=== PATIENT | male | born 1995 | race Caucasian/White ===

== ENCOUNTER 2018-07-17 19:34 | Emergency (ER) | payer BC ==
[2018-07-17] MEDS ORDERED: Bacitracin Oint 1 GM U/D Packet TOP ONE (19:50)
[2018-07-17] MEDS ORDERED: Diphtheria,Pertussis(Acell),Tetanus Vaccine 0.5 ML Syringe IM ONE (19:54)
--- NOTE | 2018-07-17 19:55 | EDM.PDOC ---
ED HPI GENERAL MEDICAL PROBLEM - General Chief Complaint: Laceration Stated Complaint: PT FELL AND HURT NOSE Time Seen by Provider: 07/17/18 19:35 Source of Information: Reports: Patient History Limitations: Reports: No Limitations - History of Present Illness INITIAL COMMENTS - FREE TEXT/NARRATIVE: HISTORY AND PHYSICAL: History of present illness: Patient is a 22-year-old male who presents to the emergency room with concerns of a nasal injury. He states he was moving some equipment when a handle slipped and hit him in the upper nasal bridge. He does have an abrasion with some soft tissue swelling. Denies any loss of consciousness, visual changes, dizziness or near-syncope. Unsure of his last tetanus update. Review of systems: As per history of present illness and below otherwise all systems reviewed and negative. Past medical history: As per history of present illness and as reviewed below otherwise noncontributory. Surgical history: As per history of present illness and as reviewed below otherwise noncontributory. Social history: See social history for further information Family history: As per history of present illness and as reviewed below otherwise noncontributory. Physical exam: General: Well-developed and well-nourished 22-year-old male. Alert and oriented. Nontoxic appearing and in no acute distress. HEENT: Tenderness with palpation to the upper portion of the bridge of his nose , naris intact. No other facial bone tenderness with palpation. No scalp tenderness, normocephalic, pupils equal and reactive bilaterally, negative for conjunctival pallor or scleral icterus, mucous membranes moist, TMs normal bilaterally, throat clear, neck supple, nontender, trachea midline. No drooling or trismus noted. No meningeal signs. No hot potato voice noted. Lungs: Clear to auscultation, breath sounds equal bilaterally, chest nontender. Heart: S1S2, regular rate and rhythm without overt murmur Abdomen: Soft, nondistended, nontender. Negative for masses or hepatosplenomegaly. Negative for costovertebral tenderness. Pelvis: Stable nontender. Genitourinary: Deferred. Rectal: Deferred. Skin: Intact, warm, dry. No lesions or rashes noted. Extremities: Atraumatic, negative for cords or calf pain. Neurovascular unremarkable. C-spine: No pinpoint vertebral tenderness upon palpation. No crepitus, Neuro: Awake, alert, oriented. Cranial nerves II through XII unremarkable. Cerebellum unremarkable. Motor and sensory unremarkable throughout. Exam nonfocal. Notes: Minimally displaced nasal bone fracture.Wound care was completed. Bacitracin applied and tetanus was updated. Supportive care measures were reviewed and discussed. He voices understanding and is agreeable to plan of care. Denies any further questions or concerns at this time. Diagnostics: Nasal bone x-ray Therapeutics: Wound care, bacitracin, tdap Prescription: Tylenol #3 (#10) Impression: Nasal bone fracture Plan: 1. Ice the area as able. Please avoid any contact sports in which she can reinjure the area. 2. Tylenol and/or ibuprofen as needed for pain management. Tylenol #3 for moderate to severe pain. This medication may cause drowsiness so do not take it while driving or needing to be functioning outside of the house. 3. Please follow-up with your primary caregiver and/or plastic surgeon in the next 1-2 days. Return to the ED as needed and as discussed. Definitive disposition and diagnosis as appropriate pending reevaluation and review of above. Onset: Today Location: Reports: Face nasal bridge Pain Score (Numeric/FACES): 4 - Related Data Allergies Allergy/AdvReac Type Severity Reaction Status Date / Time No Known Allergies Allergy Verified 07/17/18 19:47 Home Meds: Home Meds Acetaminophen with Codeine [Tylenol with Codeine #3 Tablet] 1 each PO Q4HR PRN # 10 tablet 07/17/18 [Rx] Past Medical History HEENT History: Reports: None Cardiovascular History: Reports: None Respiratory History: Reports: None Gastrointestinal History: Reports: None Neurological History: Reports: None Endocrine/Metabolic History: Reports: None Dermatologic History: Reports: None - Infectious Disease History Infectious Disease History: Reports: None Social & Family History - Family History Family Medical History: Noncontributory ED ROS GENERAL - Review of Systems Review Of Systems: ROS reveals no pertinent complaints other than HPI. ED EXAM, SKIN/RASH Exam: See Below (See dictation) Course - Vital Signs Last Recorded V/S: Last Vital Signs Temp 97.8 F 07/17/18 19:47 Pulse 62 07/17/18 19:47 Resp 18 07/17/18 19:47 BP 138/72 07/17/18 19:47 Pulse Ox 98 01/24/19 19:47 - Orders/Labs/Meds Orders: Active Orders 24 hr Category Date Time Status Vaccines to be Administered [RC] PER UNIT ROUTINE Care 07/17/18 19:55 Active Meds: Medications Discontinued Medications Generic Name Dose Route Start Last Admin Trade Name Blaneq PRN Reason Stop Dose Admin Bacitracin 1 dose 07/17/18 19:50 07/17/18 20:01 Bacitracin Oint 1 Gm TOP 07/17/18 19:51 1 dose ONETIME ONE Administration Diphtheria/Tetanus/Acell Pertussis 0.5 ml 07/17/18 19:54 07/17/18 20:00 Adacel IM 07/17/18 19:55 0.5 ml .ONCE ONE Administration Departure - Departure Time of Disposition: 20:37 Disposition: Home, Self-Care 01 Clinical Impression: Nasal bone fracture Qualifiers: Encounter type: initial encounter Fracture type: closed Qualified Code(s): S02.2XXA - Fracture of nasal bones, initial encounter for closed fracture - Discharge Information Prescriptions: Acetaminophen with Codeine [Tylenol with Codeine #3 Tablet] 1 each PO Q4HR PRN # 10 tablet PRN Reason: Pain Instructions: Nasal Fracture, [id number] Referrals: PCP,None [Primary Care Provider] - Forms: ED Department Discharge Additional Instructions: The following information is given to patients seen in the emergency department who are being discharged to home. This information is to outline your options for follow-up care. We provide all patients seen in our emergency department with a follow-up referral. The need for follow-up, as well as the timing and circumstances, are variable depending upon the specifics of your emergency department visit. If you don't have a primary care physician on staff, we will provide you with a referral. We always advise you to contact your personal physician following an emergency department visit to inform them of the circumstance of the visit and for follow-up with them and/or the need for any referrals to a consulting specialist. The emergency department will also refer you to a specialist when appropriate. This referral assures that you have the opportunity for follow-up care with a specialist. All of these measure are taken in an effort to provide you with optimal care, which includes your follow-up. Under all circumstances we always encourage you to contact your private physician who remains a resource for coordinating your care. When calling for follow-up care, please make the office aware that this follow-up is from your recent emergency room visit. If for any reason you are refused follow-up, please contact the [facility] Emergency Department at and asked to speak to the emergency department charge nurse. [facility] [address] [place] [address] [facility] [address] [place] [id number] [facility] - Plastic Surgery Professional Building [address] [facility], [address] [place] [address] 1. Ice the area as able. Please avoid any contact sports in which she can reinjure the area. 2. Tylenol and/or ibuprofen as needed for pain management. Tylenol #3 for moderate to severe pain. This medication may cause drowsiness so do not take it while driving or needing to be functioning outside of the house. 3. Please follow-up with your primary caregiver and/or the Plastic surgeon in the next 1-2 days. Return to the ED as needed and as discussed. - My Orders Last 24 Hours: My Active Orders 07/17/18 19:55 Vaccines to be Administered [RC] PER UNIT ROUTINE - Assessment/Plan Last 24 Hours: My Active Orders 07/17/18 19:55 Vaccines to be Administered [RC] PER UNIT ROUTINE
--- NOTE | 2018-07-17 20:47 | CR ---
Indication: Hit in nose with pipe Technique: Three views nasal bones Comparison: None Findings/Impression: : Minimally displaced nasal bone fractures of unknown age. Visualized paranasal sinuses are normally aerated. Remainder of the osseous structures are intact. Dictated by Candida Rodriguez MD @ Jul 17 2018 8:44PM Signed by Dr. Candida Rodriguez @ Jul 17 2018 8:46PM
[2018-07-17 20:53] VITALS: BP 132/74
== END 2018-07-17 20:53 | disposition home or self-care (01) ==
LOC: MW.ED 19:34
DX: S02.2XXA Fracture of nasal bones, initial encounter for closed fracture (principal); Z23 Encounter for immunization; W22.8XXA Striking against or struck by other objects, initial encounter
CPT/HCPCS: 70160; 70160-26; 90471; 90715; 99283; 99283-25

== ENCOUNTER 2019-07-23 21:07 | Emergency (ER) | payer BC ==
[2019-07-23] MEDS ORDERED: Dexamethasone 10 MG/ML SDV IM ONE (22:09)
[2019-07-23] MEDS ORDERED: Ondansetron 4 MG Tab.DIS PO ONE (22:09)
--- NOTE | 2019-07-23 22:28 | EDM.PDOC ---
ED HPI GENERAL MEDICAL PROBLEM - General Chief Complaint: General Stated Complaint: POSSIBLE FLU Time Seen by Provider: 07/23/19 23:01 Source of Information: Reports: Patient History Limitations: Reports: No Limitations - History of Present Illness INITIAL COMMENTS - FREE TEXT/NARRATIVE: SHENA HPI: This is a 23-year-old male with fever sore throat vomiting and diarrhea over the past 48 hours. No one else is sick at home. No hematemesis or melena no recent foreign travel tainted food ingestion or antibiotic use. Emesis was over 12 hours ago. PMHX/PSHX: Negative Social HX: Denies drugs alcohol marijuana or tobacco ROS: Review of systems is otherwise negative except ENT the patient complains of sore throat GI: The patient complains of vomiting and diarrhea PE: VS afebrile vital signs stable General: No apparent distress Head: Atraumatic normocephalic no lumps bumps or bruises Eyes: EOMI PERRLA Ears: TMs intact no hemotympanum no signs of infection no mastoid tenderness Nose: No epistaxis nares patent no septal wall hematoma Throat: pharyngeal erythema or exudate no tonsillar enlargement Neck: Supple, no cervical lymphadenopathy Chest wall: No point tenderness Heart: Regular rate and rhythm without murmur gallop or rub Lungs: There to auscultation and percussion without rales rhonchi or wheeze Abdomen: Soft nontender nondistended without guarding rigidity or rebound Neck: No spinal point tenderness full range of motion in all 6 directions Back: No spinal paraspinal or CVA tenderness Extremities: full rom through out. no effusions Skin: Warm dry intact no rashes MDM/ED Course: Strep screen is negative but influenza is positive for influenza A. Patient's abdomen is benign on serial examination. He was administered a prescription for Tamiflu and Zofran. Stable for discharge Diagnosis: Influenza A Disposition: Home Treatments NET COORDINATOR: Reports: Aspirin throat Pain Score (Numeric/FACES): 10 - Related Data Allergies Allergy/AdvReac Type Severity Reaction Status Date / Time No Known Allergies Allergy Verified 07/23/19 21:50 Home Meds: Home Meds Ondansetron [Zofran ODT] 4 mg PO Q6H PRN #10 tab.dis 07/23/19 [Rx] Oseltamivir [Tamiflu] 75 mg PO BID 5 Days #10 cap 07/23/19 [Rx] Past Medical History HEENT History: Reports: None Cardiovascular History: Reports: None Respiratory History: Reports: None Gastrointestinal History: Reports: None Musculoskeletal History: Reports: None Neurological History: Reports: None Psychiatric History: Reports: None Endocrine/Metabolic History: Reports: None Hematologic History: Reports: None Immunologic History: Reports: None Oncologic (Cancer) History: Reports: None Dermatologic History: Reports: None - Infectious Disease History Infectious Disease History: Reports: None - Past Surgical History Head Surgeries/Procedures: Reports: None Social & Family History - Family History Family Medical History: Noncontributory - Tobacco Use Smoking Status *Q: Never Smoker - Caffeine Use Caffeine Use: Reports: Soda - Recreational Drug Use Recreational Drug Use: No ED ROS GENERAL - Review of Systems Review Of Systems: Comprehensive ROS is negative, except as noted in HPI. ED EXAM, GENERAL - Physical Exam Exam: See Below Reason Not Obtained: See my dictation Course - Vital Signs Last Recorded V/S: Last Vital Signs Temp 37.6 C 07/23/19 21:52 Pulse 74 07/23/19 21:52 Resp 16 07/23/19 21:52 BP 150/93 H 07/23/19 21:52 Pulse Ox 97 07/23/19 21:52 - Orders/Labs/Meds Orders: Active Orders 24 hr Category Date Time Status CULTURE STREP A CONFIRMATION [] Stat Lab 07/23/19 20:45 Results STREP SCRN A RAPID W CULT CONF [] Stat Lab 07/23/19 20:45 Results Meds: Medications Discontinued Medications Generic Name Dose Route Start Last Admin Trade Name Freq PRN Reason Stop Dose Admin Dexamethasone 6 mg 07/23/19 22:09 Dexamethasone IM 07/23/19 22:10 ONETIME ONE Ondansetron HCl 4 mg 07/23/19 22:09 Zofran Odt PO 07/23/19 22:10 ONETIME ONE Departure - Departure Time of Disposition: 22:52 Disposition: Home, Self-Care 01 Condition: Good Clinical Impression: Influenza A - Discharge Information *PRESCRIPTION DRUG MONITORING PROGRAM REVIEWED*: Not Applicable *COPY OF PRESCRIPTION DRUG MONITORING REPORT IN PATIENT YUMIKO: Not Applicable Prescriptions: Ondansetron [Zofran ODT] 4 mg PO Q6H PRN #10 tab.dis PRN Reason: Nausea/Vomiting Oseltamivir [Tamiflu] 75 mg PO BID 7 Days #14 cap Instructions: Influenza, Adult, [id number] Referrals: PCP,None [Primary Care Provider] - Sepsis Event Note - Evaluation Sepsis Screening Result: No Definite Risk - Focused Exam Vital Signs: Vital Signs Temp Pulse Resp BP Pulse Ox 07/23/19 21:52 37.6 C 74 16 150/93 H 97 Date Exam was Performed: 07/23/19 Time Exam was Performed: 22:51
[2019-07-23 23:29] VITALS: BP 143/87; PULSE 84
== END 2019-07-23 23:10 | disposition home or self-care (01) ==
LOC: MW.ED 21:07
DX: J10.1 Influenza due to other identified influenza virus with other respiratory manifestations (principal)
CPT/HCPCS: 87081; 87804; 87880; 96372; 99283; A9270; J1100; 99282

== ENCOUNTER 2022-07-29 04:46 | Emergency (ER) | payer SELFPAY ==
[2022-07-29] MEDS ORDERED: ceFAZolin 2 GM in Sodium Chloride 0.9% 50 ML IV ONE (04:55)
[2022-07-29 05:44] LABS: ACETAMINOPHEN <2.0 ug/mL; BLOOD UREA NITROGEN,BUN 7 mg/dL (7.0-18.0); CARBON DIOXIDE,CO2 24.5 mmol/L (21.0-32.0); CHLORIDE,CL 104 mmol/L (98-107); GLUCOSE RANDOM 104 mg/dL (74-106); SODIUM,NA 142 mmol/L (136-148)
[2022-07-29 05:46] LABS: ESTIMATED GFR 127 mL/min (>60)
[2022-07-29] MEDS ORDERED: Diphtheria,Pertussis(Acell),Tetanus Vaccine 0.5 ML Syringe IM ONE (05:50)
[2022-07-29] MEDS ORDERED: Ondansetron 4 MG/2 ML SDV IVPUSH ONE (06:18)
[2022-07-29] MEDS ORDERED: fentaNYL 50 MCG/ML SDV IVPUSH ONE (06:18)
[2022-07-29 06:45] VITALS: BP 161/93; PULSE 120
== END 2022-07-29 06:27 ==
LOC: MW.ED 04:46
DX: S66.922A Laceration of unspecified muscle, fascia and tendon at wrist and hand level, left hand, initial encounter (principal); F32.A Depression, unspecified; U07.1 COVID-19; Z23 Encounter for immunization; X78.1XXA Intentional self-harm by knife, initial encounter; Y92.039 Unspecified place in apartment as the place of occurrence of the external cause
CPT/HCPCS: 36415; 73100; 80053; 80143; 80179; 80305; 80307; 85025; 86850; 86900; 86901; 86920; 87635; 90471; 90715; 96365; 96375; 99285; J0690; J2405; J3010; J3490; 99291; U0002

== ENCOUNTER 2022-09-12 15:22 | Emergency (ER) | payer SELFPAY ==
[2022-09-12 16:44] VITALS: BP 142/71; PULSE 84
== END 2022-09-12 20:24 | disposition left against medical advice (07) ==
LOC: MW.ED 15:22
DX: Z53.21 Procedure and treatment not carried out due to patient leaving prior to being seen by health care provider (principal)

== ENCOUNTER 2022-12-08 06:13 | Emergency (ER) | payer SELFPAY ==
[2022-12-08 06:40] LABS: BASOPHILS PERCENT AUTO 0.3 % (0.0-1.5); EOSINOPHILS PERCENT AUTO 0.2 % (0.0-7.0); HEMOGLOBIN 16.8 g/dL (13.0-17.0); LYMPHOCYTES ABSOLUTE AUTO 1.5 K/uL (0.6-2.4); LYMPHOCYTES PERCENT AUTO 14.4 % (16.0-40.0); MEAN CORPUSCULAR HEMOGLOBIN 28.4 pg (27.0-32.0); MEAN CORPUSCULAR HGB CONC 35.7 g/dL (31.0-37.0); MEAN CORPUSCULAR VOLUME 79.4 fL (80.0-98.0); MONOCYTES ABSOLUTE AUTO 0.8 K/uL (0.0-0.8); MONOCYTES PERCENT AUTO 7.3 % (0.0-15.0); NEUTROPHILS ABSOLUTE AUTO 8.2 K/uL (1.4-5.7); NEUTROPHILS PERCENT AUTO 77.8 % (48.0-80.0); NRBC ABSOLUTE 0 K/uL; PLATELET COUNT,PLT 324 K/uL (150-400); RED BLOOD CELL COUNT 5.92 M/uL (4.50-5.90); WHITE BLOOD CELL COUNT,WBC 10.47 K/uL (4.0-11.0)
[2022-12-08 07:29] LABS: A/G RATIO 1.2 (0.9-1.6); ACETAMINOPHEN <2.0 ug/mL; ALANINE AMINOTRANSFERASE,ALT 33 IU/L (14-63); ALBUMIN 4.6 g/dL (3.4-5.0); ALKALINE PHOSPHATASE 62 U/L (46-116); ASPARTATE AMNIOTRANSFERASE,AST 14 IU/L (15-37); BILIRUBIN TOTAL 0.7 mg/dL (0.2-1.0); BLOOD UREA NITROGEN,BUN 18 mg/dL (7.0-18.0); CALCIUM 9.6 mg/dL (8.5-10.1); CARBON DIOXIDE,CO2 27.2 mmol/L (21.0-32.0); CHLORIDE,CL 101 mmol/L (98-107); EST CRCL DRUG DOSING (CG) 130.41 mL/min; GLUCOSE RANDOM 111 mg/dL (74-106); POTASSIUM,K 4.3 mmol/L (3.5-5.1); PROTEIN TOTAL,TP 8.5 g/dL (6.4-8.2); SALICYLATE 1.1 mg/dL (0.0-20.0); SODIUM,NA 139 mmol/L (136-148); TSH ULTRASENSITIVE 1.13 uIU/mL (0.36-3.74)
[2022-12-08 07:32] LABS: ESTIMATED GFR 107 mL/min (>60); ETHANOL BLOOD MEDICAL < 3.0 mg/dL
[2022-12-08 10:31] LABS: APPEARANCE,URINE CLEAR; BILIRUBIN,URINE NEGATIVE (NEGATIVE); COLOR,URINE DARK YELLOW; GLUCOSE,URINE NEGATIVE (NEGATIVE); KETONES,URINE NEGATIVE (NEGATIVE); LEUKOCYTE ESTERASE,URINE NEGATIVE (NEGATIVE); NITRITE,URINE NEGATIVE (NEGATIVE); OCCULT BLOOD,URINE NEGATIVE (NEGATIVE); PROTEIN,URINE TRACE mg/dL (NEGATIVE); UROBILINOGEN,URINE 0.2 EU/dL (<2.0)
[2022-12-08 10:41] LABS: AMPHETAMINES SCREEN, URINE NEGATIVE (CUTOFF=500); BARBITURATE SCREEN,URINE NEGATIVE (CUTOFF=200); BENZODIAZEPINES SCREEN,URINE NEGATIVE (CUTOFF=150); BUPRENORPHINE SCREEN,URINE NEGATIVE (CUTOFF=10); METHADONE SCREEN, URINE NEGATIVE (CUTOFF=200); METHAMPHETAMINES SCREEN, URINE NEGATIVE (CUTOFF=500); OXYCODONE SCREEN,URINE NEGATIVE (CUT0FF=100); PCP SCREEN,URINE NEGATIVE (CUTOFF=25); PROPOXYPHENE SCREEN,URINE NEGATIVE (CUTOFF=300); THC SCREEN,URINE 20 NG/ML NEGATIVE (CUTOFF=50)
[2022-12-08 10:52] LABS: BACTERIA,URINE FEW (NEGATIVE); EPITHELIAL CELLS,URINE FEW (NONE-FEW); HYALINE CASTS,URINE 0-1 (0-2/LPF); MUCUS,URINE HEAVY (NONE-MOD); RBC,URINE 0-2 (0-2/HPF); WBC,URINE 0-2 (0-5/HPF)
[2022-12-08] MEDS ORDERED: Nicotine 21 MG/24 Hr Patch TRDERM ONE (13:59)
[2022-12-08 15:29] VITALS: BP 154/96; PULSE 89
== END 2022-12-08 15:40 | disposition left against medical advice (07) ==
LOC: MW.ED 06:13
DX: R45.851 Suicidal ideations (principal); F43.20 Adjustment disorder, unspecified; Z88.5 Allergy status to narcotic agent; Z20.822 Contact with and (suspected) exposure to COVID-19
CPT/HCPCS: 36415; 80053; 80143; 80179; 80305; 80307; 81001; 84443; 85025; 87635; 93005; 99285; A9270; U0002

== ENCOUNTER 2023-05-19 02:38 | Emergency (ER) | payer SELFPAY ==
[2023-05-19 02:51] VITALS: BP 148/82
[2023-05-19] MEDS ORDERED: Bacitracin Oint 28.35 GM Tube TOP STA (03:04)
[2023-05-19 03:22] VITALS: PULSE 120
== END 2023-05-19 03:21 ==
LOC: MW.ED 02:38
DX: S31.050A Open bite of lower back and pelvis without penetration into retroperitoneum, initial encounter (principal); S00.01XA Abrasion of scalp, initial encounter; R04.0 Epistaxis; Z88.5 Allergy status to narcotic agent; W54.0XXA Bitten by dog, initial encounter
CPT/HCPCS: 99283; A9270

== ENCOUNTER 2023-06-27 23:55 | Emergency (ER) | payer OTHER ==
[2023-06-28] MEDS ORDERED: Bacitracin Oint 1 GM U/D Packet TOP ONE (00:07)
[2023-06-28] MEDS ORDERED: Ibuprofen 600 MG Tab PO ONE (00:07)
[2023-06-28 01:14] VITALS: BP 130/90; PULSE 72
== END 2023-06-28 01:12 ==
LOC: MW.ED 23:55
DX: S50.02XA Contusion of left elbow, initial encounter (principal); S09.93XA Unspecified injury of face, initial encounter; S09.90XA Unspecified injury of head, initial encounter; Y04.8XXA Assault by other bodily force, initial encounter
CPT/HCPCS: 70450; 70486; 73080; 99284; A9270